=== PATIENT | male | born 1980 ===

== ENCOUNTER 2017-11-20 09:43 | Emergency (ER) | payer OTHER ==
[2017-11-20 09:51] VITALS: RESP 19
[2017-11-20 10:01] VITALS: O2SAT 98
[2017-11-20] MEDS ORDERED: diaZEpam 10 mg/2 ml Inj IVP STA (10:26)
[2017-11-20 10:50] LABS: BASO % 0.5 % (0.0-2.0); EOS % 0.8 % (0.0-4.0); HEMOGLOBIN 15.1 g/dL (12.0-18.0); LYMPH # 1.7 K/uL (1.0-4.3); MEAN CELL VOLUME 89.5 fl (80.0-94.0); MEAN CORPUSCULAR HEMOGLOBIN 29.7 pg (27.0-31.0); MEAN CORPUSCULAR HGB CONC 33.2 g/dL (33.0-37.0); MEAN PLATELET VOLUME 8.3 fl (7.2-11.7); MONO # 0.4 K/uL (0.0-0.8); MONO % 6.5 % (0.0-10.0); NEUT # 3.5 K/uL (1.8-7.0); NEUT % 62.2 % (50.0-75.0); RBC 5.06 Mil/uL (4.40-5.90); RED CELL DISTRIBUTION WIDTH 13.7 % (11.5-14.5); WHITE BLOOD COUNT 5.6 K/uL (4.8-10.8)
[2017-11-20 11:01] LABS: BLOOD UREA NITROGEN 19 mg/dl (9-20); CALCIUM 9.4 mg/dL (8.4-10.2); GFR NON-AFRICAN AMERICAN > 60
--- NOTE | 2017-11-20 11:38 | CT ---
Date of service: 11/20/2017 PROCEDURE: CT Thoracic Spine without contrast HISTORY: back pain COMPARISON: None available. TECHNIQUE: Axial computed tomography images were obtained of the thoracic spine without intravenous contrast. Coronal and sagittal reformatted images were created and reviewed. Radiation dose: Total exam DLP = 553.41 mGy-cm. This CT exam was performed using one or more of the following dose reduction techniques: Automated exposure control, adjustment of the mA and/or kV according to patient size, and/or use of iterative reconstruction technique. FINDINGS: VERTEBRAE: No destructive bony lesion identified. No fracture identified. No spondylolisthesis. Normal alignment. DISCS/SPINAL CANAL/NEURAL FORAMINA: Within the limits of the CT technique, no disc herniation seen. No central canal or neural foraminal stenosis.. PARASPINAL SOFT TISSUES: Unremarkable. OTHER FINDINGS: Unremarkable. IMPRESSION: Unremarkable CT of the thoracic spine.
--- NOTE | 2017-11-20 11:49 | CT ---
Date of service: 11/20/2017 PROCEDURE: CT Lumbar Spine without contrast HISTORY: spinal pain COMPARISON: None available. TECHNIQUE: Axial computed tomography images were obtained of the lumbar spine without the use of intravenous contrast. Coronal and sagittal reformatted images were created and reviewed. Radiation dose: Total exam DLP = 326.30 mGy-cm. This CT exam was performed using one or more of the following dose reduction techniques: Automated exposure control, adjustment of the mA and/or kV according to patient size, and/or use of iterative reconstruction technique. FINDINGS: VERTEBRAE: Mild straightening of lumbar curvature without fracture or spondylolisthesis identified. Normal vertebral body heights are identified. Degenerative changes seen at the superior endplate of L5 posteriorly. No destructive bony lesion appreciable. No facet joint subluxation or disruption. DISCS/SPINAL CANAL/NEURAL FORAMINA: L1-2: Unremarkable. L2-3: Unremarkable. L3-4: A [id number] central canal stenosis results from circumferential degenerative disc bulging and mild facet joint degenerative change. Mild degenerative bilateral neural foraminal stenosis. L4-5: A moderate central stenosis results from a large the circumferential disc bulge combined with mild facet degenerative change. Mild bilateral neural foraminal stenosis appreciated on degenerative basis. L5-S1: A generalized circumferential disc bulge is appreciated resulting in lateral recess stenosis symmetrically but without generalized central canal stenosis overall. Borderline bilateral neural foraminal stenosis. PARASPINAL SOFT TISSUES: Unremarkable. OTHER FINDINGS: None. IMPRESSION: Degenerative central canal stenoses are identified at L3-4 L4-5 as well as at the lateral recesses at L5-S1 due to circumferential disc bulging and facet joint degenerative changes. No gross disc herniation although MRI is more sensitive for evaluation of intervertebral discs. Mild straightening of lumbar curvature.
--- NOTE | 2017-11-20 12:04 | ED PDOC ---
HPI: Back Time Seen by Provider: 11/20/17 10:14 Chief Complaint (Nursing): Back Pain Chief Complaint (Provider): Back Pain History Per: Patient History/Exam Limitations: no limitations Onset/Duration Of Symptoms: Days (x2 months ), Worse Since (onset ) Current Symptoms Are (Timing): Still Present Additional Complaint(s): Boo Mcgee is a 36 year old male with no past medical history, who presents to the emergency department complaining of back pain which has been worsening for the past x2 months. 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 He further states he came into the ED because he was unable to get out of bed this morning without the help of his . Patient reports that the pain was mild initially and would go away with ibuprofen and rest, but is worse now with pain shooting down the back of his legs. He further states that pain was radiating into his testicles yesterday. Patient has not seen a doctor about this before. He denies fever or sustaining any falls or trauma. PMD: no provider Past Medical History Reviewed: Historical Data, Nursing Documentation, Vital Signs Vital Signs: Last Vital Signs Temp 97.8 F 11/20/17 09:50 Pulse 61 11/20/17 09:50 Resp 19 11/20/17 09:50 BP 157/93 H 11/20/17 09:50 Pulse Ox 98 11/20/17 09:58 - Medical History PMH: No Chronic Diseases - Family History Family History: States: Unknown Family Hx - Home Medications Home Medications: Ambulatory Orders Medication Instructions Recorded Cyclobenzaprine [Cyclobenzaprine 10 mg PO BID #14 tab 11/20/17 HCl] RX: Naproxen 500 mg PO BID #28 tab 11/20/17 - Allergies Allergies/Adverse Reactions: Allergies Allergy/AdvReac Type Severity Reaction Status Date / Time No Known Allergies Allergy Verified 11/20/17 09:57 Review of Systems ROS Statement: Except As Marked, All Systems Reviewed And Found Negative Constitutional: Negative for: Fever Genitourinary Male: Positive for: Scrotal Pain Musculoskeletal: Positive for: Back Pain, Leg Pain Physical Exam - Reviewed Nursing Documentation Reviewed: Yes Vital Signs Reviewed: Yes - Physical Exam Appears: Positive for: Well, No Acute Distress Head Exam: Positive for: ATRAUMATIC, NORMOCEPHALIC Skin: Positive for: Normal Color, Warm, Dry Eye Exam: Positive for: Normal appearance, EOMI, PERRL ENT: Positive for: Normal ENT Inspection Neck: Positive for: Normal, Painless ROM, Supple Cardiovascular/Chest: Positive for: Regular Rate, Rhythm. Negative for: Murmur Respiratory: Positive for: Normal Breath Sounds. Negative for: Respiratory Distress Gastrointestinal/Abdominal: Positive for: Normal Exam, Soft. Negative for: Tenderness Back: Positive for: Vertebral Tenderness (pain on tenderness to midlumbar spine to SI joints ) Extremity: Positive for: Other (Straight leg test was positive ). Negative for: Normal ROM (lateral rotation limited due to pain ), Deformity (palpable deformities or step offs) Comments: Pain on attempting to sit and stand - Laboratory Results Result Diagrams: 11/20/17 10:45 11/20/17 10:45 - ECG O2 Sat by Pulse Oximetry: 98 (RA) Pulse Ox Interpretation: Normal Medical Decision Making Medical Decision Making: Time: 10:23 A/P: Provider provides patient with Toradol, valium and flexeril for pain control. Provider has ordered a CT of lumbar sacral spine, basic labs and will reassess patient. --Lumbar spine without contrast CT --Thoracic spine without contrast CT --BMP --CBC with differential --Flexeril 10 mg PO HS --Toradol 30 mg IVP --Valium 5 mg IVP Time: 11:[address] FINDINGS: VERTEBRAE: No destructive bony lesion identified. No fracture identified. No spondylolisthesis. Normal alignment. DISCS/SPINAL CANAL/NEURAL FORAMINA: Within the limits of the CT technique, no disc herniation seen. No central c anal or neural foraminal stenosis.. PARASPINAL SOFT TISSUES: Unremarkable. OTHER FINDINGS: Unremarkable. IMPRESSION: Unremarkable CT of the thoracic spine. Time: 11:[address] FINDINGS: VERTEBRAE: Mild straightening of lumbar curvature without fracture or spondylolisthesis identified. Normal vertebral body heights are identified. Degenerative changes seen at the superior endplate of L5 posteriorly. No destructive bony lesion appreciable. No facet joint subluxation or disruption. DISCS/SPINAL CANAL/NEURAL FORAMINA: L1-2: Unremarkable. L2-3: Unremarkable. L3-4: A [id number] central canal stenosis results from circumferential degenerative disc bulging and mild facet joint degenerative change. Mild degenerative bilateral neural foraminal stenosis. L4-5: A moderate central stenosis results from a large the circumferential disc bulge combined with mild facet degenerative change. Mild bilateral neural foraminal stenosis appreciated on degenerative basis. L5-S1: A generalized circumferential disc bulge is appreciated resulting in lateral recess stenosis symmetrically but without generalized central canal stenosis overall. Borderline bilateral neural foraminal stenosis. PARASPINAL SOFT TISSUES: Unremarkable. OTHER FINDINGS: None. IMPRESSION: Degenerative central canal stenoses are identified at L3-4 L4-5 as well as at the lateral recesses at L5-S1 due to circumferential disc bulging and facet joint degenerative changes. No gross disc herniation although MRI is more sensitive for evaluation of intervertebral discs. Mild straightening of lumbar curvature. Time: 13:20 CT show no herniated disc or degenerative changes. Patient is seen to be ambulatory and has been told to follow up with PMD. Provider gave patient a Rx for flexeril and naproxin and discussed return parameters. Patient was informed that an outpatient MRI has to be arranged with PMD. Scribe Attestation: Documented by Nabeel Quijano, acting as a scribe for Marzena Small MD. Provider Scribe Attestation: All medical record entries made by the Scribe were at my direction and personally dictated by me. I have reviewed the chart and agree that the record accurately reflects my personal performance of the history, physical exam, medical decision making, and the department course for this patient. I have also personally directed, reviewed, and agree with the discharge instructions and disposition. Disposition - Clinical Impression Clinical Impression: Back pain, Low back pain - Disposition Referrals: [facility] [Outside] Disposition: Routine/Home Disposition Time: 13:20 Condition: FAIR Additional Instructions: Take medications as prescribed. Do not drive or operate machinery if you are taking the Flexeril as it causes dizziness. Follow up with your primary doctor to schedule an outpatient MRI. Return to the emergency department if symptoms worsen or if new symptoms develop. Prescriptions: Cyclobenzaprine [Cyclobenzaprine HCl] 10 mg PO BID #14 tab RX: Naproxen 500 mg PO BID #28 tab Instructions: Low Back Pain (DC), Upper Back Pain (DC) Forms: [employer] (Surinamese), [facility] ED School/Work Excuse Print Language: MONGOLIAN
[2017-11-20 13:35] VITALS: BP 110/70; PULSE 74; TEMP 98
== END 2017-11-20 13:33 | disposition home or self-care (01) ==
LOC: H.ER 09:43
DX: M54.5 Low back pain (principal)
CPT/HCPCS: 72128; 72131; 80048; 85025; 96374; 99284; J1885

== ENCOUNTER 2017-12-10 09:33 | Emergency (ER) | payer SELFPAY ==
[2017-12-10 09:39] VITALS: BP 173/102; PULSE 72; RESP 20; TEMP 97; O2SAT 99
[2017-12-10 09:40] VITALS: BMI 30.5
--- NOTE | 2017-12-10 10:02 | ED PDOC ---
HPI: Back Time Seen by Provider: 12/10/17 09:54 Chief Complaint (Nursing): Lower Extremity Problem/Injury History Per: Patient Onset/Duration Of Symptoms: Other (3 weeks) Current Symptoms Are (Timing): Still Present Quality Of Discomfort: Sharp Severity: Moderate Pain Scale Rating Of: 5 Previous Symptoms: Back Pain Associated Symptoms: None Exacerbating Factor(s): Movement Additional Complaint(s): Sharp right sided low back pain radiating down into right post thigh x 3 weeks. Worse last night. Denies weakness or parasthesia. Denies urinary sxs. Denies fever. No injury or heavy lifting recently. Past Medical History Vital Signs: Last Vital Signs Temp 97 F L 12/10/17 09:38 Pulse 72 12/10/17 09:38 Resp 20 12/10/17 09:38 BP 173/102 H 12/10/17 09:38 Pulse Ox 99 12/10/17 09:38 - Medical History PMH: No Chronic Diseases - Family History Family History: States: Unknown Family Hx - Home Medications Home Medications: Ambulatory Orders Medication Instructions Recorded Cyclobenzaprine [Cyclobenzaprine 10 mg PO BID #14 tab 11/20/17 HCl] RX: Naproxen 500 mg PO BID #28 tab 11/20/17 RX: traMADol [Ultram] 50 mg PO Q8 #10 tab 12/10/17 - Allergies Allergies/Adverse Reactions: Allergies Allergy/AdvReac Type Severity Reaction Status Date / Time No Known Allergies Allergy Verified 11/20/17 09:57 Review of Systems ROS Statement: Except As Marked, All Systems Reviewed And Found Negative Constitutional: Negative for: Fever Genitourinary Male: Negative for: Dysuria, Frequency Musculoskeletal: Positive for: Back Pain Neurological: Negative for: Weakness, Numbness Physical Exam - Reviewed Nursing Documentation Reviewed: Yes Vital Signs Reviewed: Yes - Physical Exam Appears: Positive for: Non-toxic, Uncomfortable Head Exam: Positive for: ATRAUMATIC, NORMAL INSPECTION, NORMOCEPHALIC Skin: Positive for: Normal Color, Warm, DRY Eye Exam: Positive for: EOMI, Normal appearance, PERRL ENT: Positive for: Normal ENT Inspection Neck: Positive for: Normal, Painless ROM Cardiovascular/Chest: Positive for: Regular Rate, Rhythm Respiratory: Positive for: CNT, Normal Breath Sounds Gastrointestinal/Abdominal: Positive for: Normal Exam, Soft Back: Positive for: Normal Inspection, Muscle Spasm, Other (Right parasacral tenderness. Pain straight leg raise right side.). Negative for: Vertebral Tenderness Extremity: Positive for: Normal ROM Neurologic/Psych: Positive for: Alert, Oriented. Negative for: Motor/Sensory Deficits - ECG O2 Sat by Pulse Oximetry: 99 Disposition - Clinical Impression Clinical Impression: Low back pain - Patient ED Disposition Is Patient to be Admitted: No Counseled Patient/Family Regarding: Diagnosis, Need For Followup, Rx Given - Disposition Referrals: Terrell Cash III, MD [Staff Provider] - Disposition: Routine/Home Disposition Time: 12:06 Condition: FAIR Prescriptions: RX: traMADol [Ultram] 50 mg PO Q8 #10 tab Instructions: Low Back Pain (DC) Forms: [facility] (Korean)
== END 2017-12-10 12:45 | disposition home or self-care (01) ==
LOC: H.ER 09:33
DX: M54.5 Low back pain (principal)
CPT/HCPCS: 96372; 99282; J1885